=== PATIENT | female | born 1990 | race Hispanic/Latino ===

== ENCOUNTER 2018-06-07 17:58 | Observation (INO) | payer MEDICAID ==
[~2018-06-07] VITALS: Ht 160 cm; Wt 68.5 kg
[~2018-06-07 17:58] MED LIST: PREN-196 PO
[2018-06-07 18:56] LABS: APPEARANCE,URINE Clear (CLEAR); BILIRUBIN,URINE Negative (NEGATIVE); COLOR,URINE Yellow (YELLOW); GLUCOSE, URINE (UA) Negative (NEGATIVE); KETONES,URINE Negative (NEGATIVE); LEUKOCYTE ESTERASE ,URINE Small (NEGATIVE); NITRATE,URINE Negative (NEGATIVE); OCCULT BLOOD,URINE Negative (NEGATIVE); PH,URINE 6.5 (5.0-8.0); PROTEIN,URINE Negative (NEGATIVE); UROBILINOGEN,URINE 0.2 mg/dL (0.2-1.0)
[2018-06-07 19:12] LABS: BACTERIA,URINE Rare /HPF (None Seen); RBC,URINE None Seen /HPF (0-1); WBC,URINE 0-1 /HPF (0-1)
== END 2018-06-07 19:20 | disposition home or self-care (01) ==
LOC: EDH 17:58 → LDH 17:59
PROVIDERS: ADMIT Specialist; ATTEND Specialist
DX: O62.9 Abnormality of forces of labor, unspecified (principal); Z3A.32 32 weeks gestation of pregnancy
CPT/HCPCS: 81001; 99284; G0378

== ENCOUNTER 2020-02-29 20:00 | Observation (INO) | payer MEDICAID ==
[~2020-02-29] VITALS: Ht 160 cm; Wt 71.7 kg
[2020-02-29] MEDS ORDERED: LACTATED RINGERS 1000ML 1,000 ML IV SCH (20:15)
[2020-02-29 20:58] LABS: APPEARANCE,URINE Clear (CLEAR); BILIRUBIN,URINE Small (NEGATIVE); COLOR,URINE Dark Yellow (YELLOW); GLUCOSE, URINE (UA) Negative (NEGATIVE); KETONES,URINE Trace mg/dL (NEGATIVE); LEUKOCYTE ESTERASE ,URINE Negative (NEGATIVE); NITRATE,URINE Negative (NEGATIVE); OCCULT BLOOD,URINE Negative (NEGATIVE); PH,URINE 5.5 (5.0-8.0); PROTEIN,URINE POS 1+ mg/dL (NEGATIVE)
[2020-02-29 21:08] LABS: BACTERIA,URINE Rare /HPF (None Seen); MUCUS,URINE Rare LPF (None Seen); RBC,URINE 0-1 /HPF (0-1); SQUAMOUS EPITHELIAL CELL,UR Few /HPF (0-2); WBC,URINE 0-1 /HPF (0-1)
[2020-02-29 22:36] VITALS: BP 114/68
[2020-02-29] MEDS ORDERED: LACTATED RINGERS 1000ML 1,000 ML IV PRN (23:45)
[2020-02-29] MEDS ORDERED: AMPICILLIN 2GM+NS 100ML 100 ML IV SCH (23:45)
[2020-03-01 00:27] LABS: HEMATOCRIT 32.4 % (36-48); MEAN CORPUSCULAR HEMOGLOBIN 29.3 pg (27.0-33.0); MEAN CORPUSCULAR HGB CONC 32.1 g/dL (32.0-36.0); MEAN CORPUSCULAR VOLUME 91.3 fL (79-99); RED BLOOD CELL COUNT(AUTO) 3.55 MIL/uL (4.00-5.50); RED CELL DISTRIBUTION WIDTH 13.4 % (11.0-15.5); WHITE BLOOD COUNT (AUTO) 7.7 K/uL (4.8-10.8)
[2020-03-01] MEDS ORDERED: AMPICILLIN 1GM+NS 50ML 50 ML IV SCH (04:00)
[2020-03-01 12:37] LABS: RAPID PLASMA REAGIN NONREACTIVE (NONREACTIVE)
[2020-03-02 07:15] LABS: HEPATITIS Bs ANTIGEN SCREEN P Negative (Negative)
[2020-03-04] MEDS ORDERED: PREN-196 PO (06:49)
== END 2020-03-01 09:10 | disposition home or self-care (01) ==
LOC: EDH 20:00 → LDH 20:01 → INTOOBSV 20:01 → OBSVTOIN 20:01
PROVIDERS: ADMIT Specialist; ATTEND Specialist
DX: O62.9 Abnormality of forces of labor, unspecified (principal); Z3A.39 39 weeks gestation of pregnancy
CPT/HCPCS: 36415; 76815; 81001; 85027; 86592; 86701; 86850; 86900; 86901; 87340; 87390; 96361; 96365; 96366; 99284; G0378 ×6; J0290 ×2; 96360

== ENCOUNTER 2023-05-14 09:33 | Observation (INO) | payer MEDICAID ==
[~2023-05-14] VITALS: Ht 160 cm; Wt 73.9 kg
[2023-05-14 09:35] VITALS: BP 113/56; PULSE 77; RESP 16
[2023-05-14 10:16] LABS: APPEARANCE,URINE CLOUDY (CLEAR); BILIRUBIN,URINE NEGATIVE (NEGATIVE); COLOR,URINE YELLOW (YELLOW); GLUCOSE, URINE (UA) NEGATIVE (NEGATIVE); KETONES,URINE 10 mg/dL (NEGATIVE); LEUKOCYTE ESTERASE ,URINE 500 Leu/uL (NEGATIVE); NITRATE,URINE NEGATIVE (NEGATIVE); OCCULT BLOOD,URINE NEGATIVE (NEGATIVE); PROTEIN,URINE 30 mg/dL (NEGATIVE); UROBILINOGEN,URINE 0.2 mg/dL (0.2-1.0)
[2023-05-14 10:36] LABS: ADD UA MICROSCOPIC YES
[2023-05-14 11:08] LABS: MUCUS,URINE FEW LPF (None Seen); SQUAMOUS EPITHELIAL CELL,UR MANY /HPF (0-2); WBC,URINE 26-50 /HPF (0-1)
== END 2023-05-14 11:00 | disposition home or self-care (01) ==
LOC: EDH 09:33 → LDH 09:34
PROVIDERS: ADMIT Internal Medicine; ATTEND Internal Medicine
DX: O26.893 Other specified pregnancy related conditions, third trimester (principal); R42 Dizziness and giddiness; R11.0 Nausea; Z3A.37 37 weeks gestation of pregnancy
CPT/HCPCS: 87088; 81001; G0379; G0378